=== PATIENT | male | born 1995 ===

== ENCOUNTER → 2018-11-11 | Outpatient (CLI) | payer OTHER ==
[~2018-11-11] MED LIST: AMOX250 PO; CODACE30 PO
== END | disposition home or self-care (01) ==
LOC: LAB EV 17:18 → LAB SHORT 17:18
DX: J02.9 Acute pharyngitis, unspecified (principal)
CPT/HCPCS: 87081

== ENCOUNTER → 2019-03-22 | Outpatient (CLI) | payer OTHER | LOC: LAB SHORT 16:30 → LAB 16:30 | DX: K21.9 Gastro-esophageal reflux disease without esophagitis (principal) | CPT/HCPCS: 87338 ==